=== PATIENT | female | born 1995 | race Caucasian/White ===

== ENCOUNTER 2019-05-15 16:02 | Emergency (ER) | payer BC, SELFPAY ==
[2019-05-15] MEDS ORDERED: ALPRAZolam 0.5 MG TAB ONE ×2 (16:19→16:23)
[2019-05-15] MEDS ORDERED: Ibuprofen 200 MG TAB ONE (16:21)
--- NOTE | 2019-05-15 19:33 | RAD ---
PORTABLE CHEST: 05/15/2019 COMPARISON: Study done at [facility] on 08/21/2008. FINDINGS: The heart is normal in size. There is no mediastinal widening or shift. The lungs are fully inflate d and clear. No effusions, pneumothorax, or fractures are appreciated. IMPRESSION: No acute thoracic finding. POS: HOME
== END 2019-05-15 16:50 | disposition home or self-care (01) ==
LOC: BURERS 16:02
DX: S20.219A Contusion of unspecified front wall of thorax, initial encounter (principal); F17.200 Nicotine dependence, unspecified, uncomplicated; V49.9XXA Car occupant (driver) (passenger) injured in unspecified traffic accident, initial encounter
CPT/HCPCS: 71045

== ENCOUNTER 2020-11-03 10:49 | Emergency (ER) | payer OTHER, SELFPAY ==
[2020-11-03] MEDS ORDERED: Dexamethasone 4 MG TAB ONE (11:16)
[2020-11-03] MEDS ORDERED: AMOXicillin 250 MG CAP ONE (11:16)
[2020-11-03] MEDS ORDERED: cefTRIAXone\\ROCEPHIN 2 GM VIAL ONE (13:13)
== END 2020-11-03 11:22 | disposition home or self-care (01) ==
LOC: BURERS 10:49
DX: J02.0 Streptococcal pharyngitis (principal)
CPT/HCPCS: 99282; J0696; J8540

== ENCOUNTER 2022-09-29 09:49 | Emergency (ER) | payer MEDICAID, SELFPAY ==
[2022-09-29 11:00] LABS: SARS-CoV-2 NAA Rapid Test Not Detected (NotDetected)
== END 2022-09-29 11:22 | disposition home or self-care (01) ==
LOC: BURERS 09:49
DX: J06.9 Acute upper respiratory infection, unspecified (principal); Z20.822 Contact with and (suspected) exposure to COVID-19
CPT/HCPCS: 71045

== ENCOUNTER 2024-08-08 11:02 | Emergency (ER) | payer MEDICAID, SELFPAY | END 2024-08-08 11:53 | disposition home or self-care (01) | LOC: BURERS 11:02 | DX: J20.9 Acute bronchitis, unspecified (principal) | CPT/HCPCS: 71046 ==